=== PATIENT | male | born 1940 | race Caucasian/White ===

== ENCOUNTER 2016-12-17 06:04 | Emergency (ER) | payer MEDICARE, OTHER ==
[~2016-12-17 06:04] MED LIST: ALBUTEROL S3 ML/VIAL NEB; ALLEGRA ALLERG180 MG PO; ANORO ELLIPTA1 EACH IH; CELEXA20 MG PO; FLOMAX0.4 MG PO; LEVAQUIN750 MG PO; PREDNISONE10 MG PO; PREDNISONE5 MG PO; PROSCAR5 MG PO; ZANTAC150 MG PO
== END 2016-12-17 09:17 | disposition expired ==
LOC: ER 06:04
DX: J98.19 Other pulmonary collapse (principal); J44.9 Chronic obstructive pulmonary disease, unspecified; J45.909 Unspecified asthma, uncomplicated; Z88.8 Allergy status to other drugs, medicaments and biological substances
CPT/HCPCS: 92950